=== PATIENT | female | born 1960 | race Caucasian/White ===

== ENCOUNTER 2018-11-26 16:23 | Emergency (ER) | payer BC, OTHER ==
--- NOTE | 2018-11-26 18:37 | RAD REPORT ---
EXAM DESCRIPTION: US - Extrem Venous W Compress Manuel - 11/26/2018 6:32 pm CLINICAL HISTORY: R/O DVT Bilateral leg edema and swelling. COMPARISON: Head C Spine Cap Wo Con dated 03/15/2017No comparisons TECHNIQUE: Real-time sonographic interrogation of the left and right lower extremity deep venous sys tems was performed. FINDINGS: Normal compressibility, flow augmentation, phasic flow and spontaneous flow is identified in both the left and right lower extremity deep venous systems. IMPRESSION: No sonographic evidence of left or right lower extremity deep venous thrombosis.
[2018-11-26 19:01] LABS: Absolute Lymphocytes (CBC) 1.9 K/uL (0.7-4.9); Absolute Monocytes 0.3 K/uL (0.1-1.3); Absolute Neutrophil 3.8 K/uL (1.8-8.0); Basophils % 0.4 % (0-1.3); Eosinophils % 2.1 % (0-4.4); Hematocrit 41.6 % (36.0-45.0); Lymphocytes % 30.7 % (15.3-44.8); MPV 8.8 fL (7.6-11.3); Monocytes % 5.3 % (3.3-12.3); RBC Red Blood Cell Count 4.59 M/uL (3.86-4.86)
[2018-11-26 19:02] LABS: Protime INR 0.96
[2018-11-26 19:17] LABS: ALT/SGPT 66 U/L (12-78); AST/SGOT 58 U/L (15-37); Albumin 3.9 g/dL (3.4-5.0); Alkaline Phosphatase 98 U/L (45-117); BUN Blood Urea Nitrogen 18 mg/dL (7-18); Bicarbonate 26 mmol/L (21-32); Bilirubin Direct < 0.1 mg/dL (0-0.2); Bilirubin Total 0.2 mg/dL (0.2-1.0); Glucose Level 86 mg/dL (74-106); Magnesium 2.2 mg/dL (1.8-2.4); NT PRO-BNP 33 pg/mL (<125); Potassium 4.1 mmol/L (3.5-5.1); Protein, Total 7.4 g/dL (6.4-8.2); Sodium Level 142 mmol/L (136-145); Troponin (Emerg Dept Use Only) < 0.02 ng/mL (0.0-0.045)
--- NOTE | 2018-11-26 19:21 | RAD REPORT ---
EXAM DESCRIPTION: RAD - Chest Pa And Lat (2 Views) - 11/26/2018 7:16 pm CLINICAL HISTORY: SWELLING Chest pain. COMPARISON: <Comparisons> FINDINGS: The lungs are clear. The heart is normal in size. No displaced fractures. IMPRESSION: No acute or concerning finding suspected.
--- NOTE | 2018-11-26 19:28 | EDPHYS ---
Physician Documentation [facility] Name: Bertha Cerrato Age: 58 yrs Sex: Female : 1960 Arrival Date: 11/26/2018 Time: 16:26 Bed 17 Private MD: ED Physician Oseas Stokes HPI: 11/26 19:40 This 58 yrs old Female presents to ER via Ambulatory with complaints of Feet snw Swelling. 19:40 The patient presents with swelling. The complaints affect the left and right lower ext snw edema,worse to left foot. Context: The problem was sustained at home, resulted from an unknown cause, the patient can fully bear weight, the patient is able to ambulate, Problem is a result from a previous injury: No. Onset: The symptoms/episode began/occurred gradually, 1 week(s) ago, and became worse and became persistent. Associated signs and symptoms: The patient has no apparent associated signs or symptoms. Severity of symptoms: At their worst the symptoms were moderate. The patient has not experienced similar symptoms in the past. It is unknown whether or not the patient has recently seen a physician, appt with Dr. Loera tomorrow. Historical: - Allergies: 16:40 No Known Allergies; ch - Home Meds: 16:40 None [Active]; ch - PMHx: 16:40 None; ch - PSHx: 16:40 Cholecystectomy; Hernia repair; ch - Immunization history:: Adult Immunizations up to date. - Social history:: Smoking status: Patient/guardian denies using tobacco, Patient uses alcohol, occasionally. Patient/guardian denies using street drugs. - Ebola Screening: : Patient negative for fever greater than or equal to 101.5 degrees Fahrenheit, and additional compatible Ebola Virus Disease symptoms Patient denies exposure to infectious person Patient denies travel to an Ebola-affected area in the 21 days before illness onset No symptoms or risks identified at this time. ROS: 19:40 Constitutional: Negative for fever, chills, and weight loss, Eyes: Negative for injury, snw pain, redness, and discharge, ENT: Negative for injury, pain, and discharge, Neck: Negative for injury, pain, and swelling, Cardiovascular: Negative for chest pain, palpitations, and edema, Respiratory: Negative for shortness of breath, cough, wheezing, and pleuritic chest pain, Abdomen/GI: Negative for abdominal pain, nausea, vomiting, diarrhea, and constipation, Back: Negative for injury and pain, : Negative for injury, bleeding, discharge, and swelling, Skin: Negative for injury, rash, and discoloration, Neuro: Negative for headache, weakness, numbness, tingling, and seizure. 19:40 MS/extremity: Positive for swelling, of the left leg and right foot. Exam: 19:38 Constitutional: This is a well developed, well nourished patient who is awake, alert, snw and in no acute distress. Head/Face: Normocephalic, atraumatic. Eyes: Pupils equal round and reactive to light, extra-ocular motions intact. Lids and lashes normal. Conjunctiva and sclera are non-icteric and not injected. Cornea within normal limits. Periorbital areas with no swelling, redness, or edema. ENT: Nares patent. No nasal discharge, no septal abnormalities noted. Tympanic membranes are normal and external auditory canals are clear. Oropharynx with no redness, swelling, or masses, exudates, or evidence of obstruction, uvula midline. Mucous membranes moist. Neck: Trachea midline, no thyromegaly or masses palpated, and no cervical lymphadenopathy. Supple, full range of motion without nuchal rigidity, or vertebral point tenderness. No Meningismus. Chest/axilla: Normal chest wall appearance and motion. Nontender with no deformity. No lesions are appreciated. Cardiovascular: Regular rate and rhythm with a normal S1 and S2. No gallops, murmurs, or rubs. Normal PMI, no JVD. No pulse deficits. Respiratory: Lungs have equal breath sounds bilaterally, clear to auscultation and percussion. No rales, rhonchi or wheezes noted. No increased work of breathing, no retractions or nasal flaring. Abdomen/GI: Soft, non-tender, with normal bowel sounds. No distension or tympany. No guarding or rebound. No evidence of tenderness throughout. Back: No spinal tenderness. No costovertebral tenderness. Full range of motion. Skin: Warm, dry with normal turgor. Normal color with no rashes, no lesions, and no evidence of cellulitis. Neuro: Awake and alert, GCS 15, oriented to person, place, time, and situation. Cranial nerves II-XII grossly intact. Motor strength 5/5 in all extremities. Sensory grossly intact. Cerebellar exam normal. Normal gait. 19:38 ECG was reviewed by the Attending Physician. 19:38 Musculoskeletal/extremity: Extremities: all appear grossly normal, with no appreciated pain with palpation, ROM: no acute changes, Circulation is intact in all extremities. DVT Exam: swelling, that is mild, that is moderate, of the right leg, of the left leg. Vital Signs: 16:40 BP 129 / 74; Pulse 92; Resp 16; Temp 98.2; Pulse Ox 99% on R/A; Weight 95.25 kg; Height ch 5 ft. 9 in. (175.26 cm); Pain 2/10; 17:51 BP 99 / 75; Pulse 81; Resp 16; Pulse Ox 97% ; bp 19:01 BP 111 / 73; Pulse 86; Resp 13; Pulse Ox 100% ; bp 19:20 BP 115 / 70; Pulse 70; Resp 17; Temp 98.6; Pulse Ox 99% ; Pain 0/10; rr5 16:40 Body Mass Index 31.01 (95.25 kg, 175.26 cm) MDM: 17:37 Patient medically screened. snw 19:39 Data reviewed: vital signs, nurses notes. Data interpreted: Pulse oximetry: on room air snw is 99 %. Interpretation: normal. Counseling: I had a detailed discussion with the patient and/or guardian regarding: the historical points, exam findings, and any diagnostic results supporting the discharge/admit diagnosis, lab results, radiology results, the need for outpatient follow up, to return to the emergency department if symptoms worsen or persist or if there are any questions or concerns that arise at home. Special discussion: Based on the history and exam findings, there is no indication for further emergent testing or inpatient evaluation. I discussed with the patient/guardian the need to see the primary care provider for further evaluation of the symptoms. 11/26 18:40 Order name: Basic Metabolic Panel; Complete Time: 19:20 snw 11/26 18:40 Order name: CBC with Diff; Complete Time: 19:16 snw 11/26 18:40 Order name: LFT's; Complete Time: 19:20 snw 11/26 18:40 Order name: Magnesium; Complete Time: 19:20 snw 11/26 18:40 Order name: NT PRO-BNP; Complete Time: 19:20 snw 11/26 18:40 Order name: PT-INR; Complete Time: 19:16 snw 11/26 17:55 Order name: Extrem Venous W Compress Manuel; Complete Time: 18:43 EDMS 11/26 18:40 Order name: Chest Pa And Lat (2 Views) XRAY; Complete Time: 19:23 snw 11/26 18:40 Order name: Troponin (emerg Dept Use Only); Complete Time: 19:20 snw 11/26 18:40 Order name: EKG; Complete Time: 18:42 snw 11/26 18:40 Order name: Cardiac monitoring; Complete Time: 18:59 snw 11/26 18:40 Order name: EKG - Nurse/Tech; Complete Time: 18:59 snw 11/26 18:40 Order name: IV Saline Lock; Complete Time: 18:53 snw 11/26 18:40 Order name: Labs collected and sent; Complete Time: 18:53 snw 11/26 18:40 Order name: O2 Per Protocol; Complete Time: 18:52 snw 11/26 18:40 Order name: O2 Sat Monitoring; Complete Time: 18:52 snw Administered Medications: No medications were administered Disposition: 11/26/18 19:27 Discharged to Home. Impression: Edema, unspecified. - Condition is Stable. - Discharge Instructions: Edema, How to Take Your Blood Pressure, Jmad-ge-Duis, Rehydration, Adult, Form - Blood Pressure Record Sheet, Peripheral Edema. - Work release form, Medication Reconciliation Form, Thank You Letter, Antibiotic Education, Prescription Opioid Use form. - Follow up: Private Physician; When: 2 - 3 days; Reason: Recheck today's complaints, Continuance of care, Re-evaluation by your physician. Follow up: Emergency Department; When: As needed; Reason: Worsening of condition. Addendum: 11/30/2018 09:56 Co-signature as Attending Physician, Oseas Stokes MD I agree with the assessment and c gomez plan of care. Signatures: Dispatcher [employer] EDKS Savita Garcia, RN Oseas Bella ch, MD MD cha Therrien, Shelly, WASH PLANT OPERATOR-C WASH PLANT OPERATOR-Csnw Be Babin RN RN rr5 Corrections: (The following items were deleted from the chart) 11/26 18:17 17:59 Extrem Venous W Compression Manuel+[email or web address] ordered. EDMS EDMS 19:55 19:27 11/26/2018 19:27 Discharged to Home. Impression: Edema, unspecified. Condition is rr5 Stable. Forms are Medication Reconciliation Form, Thank You Letter, Antibiotic Education, Prescription Opioid Use. Follow up: Private Physician; When: 2 - 3 days; Reason: Recheck today's complaints, Continuance of care, Re-evaluation by your physician. Follow up: Emergency Department; When: As needed; Reason: Worsening of condition. snw
--- NOTE | 2018-11-26 19:28 | ER ---
Nurse's Notes [facility] Name: Bertha Cerrato Age: 58 yrs Sex: Female : 1960 Arrival Date: 11/26/2018 Time: 16:26 Bed 17 Private MD: Diagnosis: Edema, unspecified Presentation: 11/26 16:39 Presenting complaint: Patient states: I FLEW LAST WEEK. FOR ABOUT A WEEK SWELLING TO MY L FOOT. TODAY IT HURTS AND SEEMS TO BE DISCOLORED. Transition of care: patient was not received from another setting of care. Onset of symptoms was November 19, 2018. Risk Assessment: Do you want to hurt yourself or someone else? Patient reports no desire to harm self or others. Initial Sepsis Screen: Does the patient meet any 2 criteria? No. Patient's initial sepsis screen is negative. Does the patient have a suspected source of infection? No. Patient's initial sepsis screen is negative. Care prior to arrival: None. 16:39 Method Of Arrival: Ambulatory 16:39 Acuity: KORIN 3 Triage Assessment: 16:40 General: Appears in no apparent distress. comfortable, Behavior is calm, cooperative, ch appropriate for age. Pain: Complains of pain in left foot Pain currently is 2 out of 10 on a pain scale. Historical: - Allergies: 16:40 No Known Allergies; ch - Home Meds: 16:40 None [Active]; ch - PMHx: 16:40 None; - PSHx: 16:40 Cholecystectomy; Hernia repair; - Immunization history:: Adult Immunizations up to date. - Social history:: Smoking status: Patient/guardian denies using tobacco, Patient uses alcohol, occasionally. Patient/guardian denies using street drugs. - Ebola Screening: : Patient negative for fever greater than or equal to 101.5 degrees Fahrenheit, and additional compatible Ebola Virus Disease symptoms Patient denies exposure to infectious person Patient denies travel to an Ebola-affected area in the 21 days before illness onset No symptoms or risks identified at this time. Screenin:33 Abuse screen: Denies threats or abuse. Denies injuries from another. Nutritional bp screening: No deficits noted. Tuberculosis screening: No symptoms or risk factors identified. Fall Risk None identified. Assessment: 17:30 General: Appears in no apparent distress. comfortable, Behavior is calm, cooperative, bp appropriate for age. Pain: Denies pain. Neuro: No deficits noted. Cardiovascular: No deficits noted. Respiratory: Airway is patent Respiratory effort is even, unlabored, Respiratory pattern is regular, symmetrical. GI: No signs and/or symptoms were reported involving the gastrointestinal system. : No signs and/or symptoms were reported regarding the genitourinary system. EENT: No deficits noted. Derm: No deficits noted. Musculoskeletal: Swelling present in right foot and left foot. 18:39 Reassessment: PT RETURNED FROM U/S. bp 19:20 Reassessment: came back from xray. awaiting for results. General: Appears in no rr5 apparent distress. comfortable, Behavior is calm, cooperative, appropriate for age. Pain: Denies pain. Neuro: Level of Consciousness is awake, alert, obeys commands, Oriented to person, place, time, situation, Appropriate for age. Cardiovascular: Capillary refill < 3 seconds Patient's skin is warm and dry. Respiratory: Airway is patent Respiratory effort is even, unlabored, Respiratory pattern is regular, symmetrical. GI: No signs and/or symptoms were reported involving the gastrointestinal system. : No signs and/or symptoms were reported regarding the genitourinary system. EENT: No deficits noted. Derm: Skin is intact, Skin temperature is warm. Musculoskeletal: Swelling present in left leg Denies pain in, left leg. 19:50 Reassessment: discharge instruction given and explained without complaints made. rr5 verbalized understanding. Vital Signs: 16:40 BP 129 / 74; Pulse 92; Resp 16; Temp 98.2; Pulse Ox 99% on R/A; Weight 95.25 kg; Height ch 5 ft. 9 in. (175.26 cm); Pain 2/10; 17:51 BP 99 / 75; Pulse 81; Resp 16; Pulse Ox 97% ; bp 19:01 BP 111 / 73; Pulse 86; Resp 13; Pulse Ox 100% ; bp 19:20 BP 115 / 70; Pulse 70; Resp 17; Temp 98.6; Pulse Ox 99% ; Pain 0/10; rr5 16:40 Body Mass Index 31.01 (95.25 kg, 175.26 cm) ED Course: 16:26 Patient arrived in ED. rg4 16:40 Triage completed. 16:40 Arm band placed on left wrist. Patient placed in waiting room. 17:30 Mohit Cox, RN is Primary Nurse. bp 17:33 [facility] Dock[facility]C [facility]. snw 17:33 Oseas Stokes MD is Attending Physician. snw 17:33 Patient has correct armband on for positive identification. Bed in low position. Call bp light in reach. Side rails up X2. Adult w/ patient. 18:36 Extrem Venous W Compress Manuel In Process Unspecified. EDMS 19:00 Initial lab(s) drawn, by ED staff, sent to lab. Inserted saline lock: 22 gauge in right rr5 antecubital area, using aseptic technique. ,using aseptic technique. inserted by [facility] office technician Blood collected. 19:15 Chest Pa And Lat (2 Views) XRAY In Process Unspecified. EDMS 19:55 No provider procedures requiring assistance completed. IV discontinued, intact, rr5 bleeding controlled, No redness/swelling at site. Pressure dressing applied. Administered Medications: No medications were administered Outcome: 19:27 Discharge ordered by . snw 19:55 Discharged to home ambulatory. rr5 19:55 Condition: stable 19:55 Discharge instructions given to patient, Instructed on discharge instructions, follow up and referral plans. Demonstrated understanding of instructions, follow-up care. 19:55 Patient left the ED. rr5 Signatures: Dispatcher [employer] Savita Page, RN TEMO Bertha Dockery FNP-C FNP-Amadaw [employer] rg4 Mohit Cox, RN RN Be Dotson RN RN rr5
--- NOTE | 2018-11-27 08:03 | EKG ---
Test Date: 2018-11-26 Test Time: 19:03:06 Train Controller: YAIR MEASUREMENT RESULTS: Intervals: Rate: 78 NC: 192 QRSD: 80 QT: 360 QTc: 410 Edon: P: 4 NC: 192 QRS: 23 T: 29 INTERPRETIVE STATEMENTS: Normal sinus rhythm Normal ECG No previous ECG available for comparison Electronically Signed On 11-27-18 08:02:44 CDT by Mor Cedillo
== END 2018-11-26 19:55 | disposition home or self-care (01) ==
LOC: ER 16:23
DX: R60.0 Localized edema (principal)
CPT/HCPCS: 36415; 71046; 80048; 80076; 83735; 83880; 84484; 85025; 85610; 93005; 93970; 99284